=== PATIENT | male | born 1950 | race Caucasian/White ===

== ENCOUNTER 2021-04-07 12:12 | Emergency (ER) | payer MEDICARE, OTHER ==
[~2021-04-07] VITALS: Ht 172.7 cm; Wt 68.0 kg
--- NOTE | 2021-04-07 12:25 | PHYS DOC ---
Past History Past Medical History: Bipolar, Diabetes, Hypertension Past Surgical History: Appendectomy Smoking: Non-smoker Alcohol Use: None Drug Use: None General Adult EDM: Chief Complaint: HYPOTENSION HPI: HPI: Patient is a 70-year-old male brought into the ER today by [facility] for complaints of syncopal episode and fall. Patient reports around 3:00 this morning he was clipping his toenails when he bent over and then stood up and had a syncopal episode. He reports hitting his head on the ceramic tile of his bathroom. He is reporting posterior neck pain that he rates 7 out of 10. The pain does not radiate. No treatment for pain prior to arrival. Patient denies being on any blood thinners. He has a history of orthostatic hypotension. He states that when he checked his blood pressure at home it was 80s systolic, EMS reports that it was 110s systolic. Patient denies blurred vision, headache, dizziness, chest pain, shortness of breath, weakness. Patient states that he normally ambulates with the assistance of a cane at home. Review of Systems: Review of Systems: 14 body systems of the review of systems have been reviewed. See HPI for pertinent positive and negative responses, otherwise all other systems are negative, nonpertinent or noncontributory Current Medications: Current Meds: Current Medications Medications (Trade) Dose Ordered Sig/Christian Start Time Stop Time Status Last Admin Dose Admin Sodium Chloride 1,000 ml @ 1,000 mls/hr 1X ONCE 04/07/21 12:30 04/07/21 13:29 Allergies: Allergies: Allergies Coded Allergies Type Severity Reaction Last Updated Verified Amoxicillin Allergy Severe Nausea and Vomiting 05/06/14 No clavulanic acid Allergy Severe Nausea and Vomiting 05/06/14 No metronidazole Allergy Severe Hives 05/06/14 No radium-223 dichloride Allergy Severe Hives 05/06/14 No risperidone Allergy Severe Hives 05/06/14 No Physical Exam: PE: Constitutional: Well developed, well nourished, no acute distress, non-toxic appearance. [] HENT: Normocephalic, atraumatic Eyes: PERRLA, EOMI, conjunctiva normal, no discharge. [] Neck: Normal range of motion, supple, no stridor, positive cervical spinal tenderness with palpationc-collar in place. [] Cardiovascular:Heart rate tachycardia rhythm, no murmur [] Lungs & Thorax: Bilateral breath sounds clear to auscultation [] Abdomen: Bowel sounds normal, soft, no tenderness, no masses, no pulsatile masses. [] Skin: Warm, dry, no erythema, no rash. [] Back: No tenderness, normal range of motion [] Extremities: No tenderness, no cyanosis, no clubbing, ROM intact, no edema. [] Neurologic: Alert and oriented X 3, normal motor function, normal sensory function, no focal deficits noted, equal parking regulation enforcement officer strengths, no pronator drift [] Psychologic: Affect normal, judgement normal, mood normal. [] Current Patient Data: Labs: Laboratory Tests Test 04/07/21 12:51 White Blood Count 6.7 x10^3/uL Red Blood Count 4.50 x10^6/uL Hemoglobin 13.1 g/dL Hematocrit 39.0 % Mean Corpuscular Volume 87 fL Mean Corpuscular Hemoglobin 29 pg Mean Corpuscular Hemoglobin Concent 34 g/dL Red Cell Distribution Width 14.4 % Platelet Count 210 x10^3/uL Neutrophils (%) (Auto) 42 % Lymphocytes (%) (Auto) 42 % Monocytes (%) (Auto) 11 % Eosinophils (%) (Auto) 5 % Basophils (%) (Auto) 1 % Neutrophils # (Auto) 2.8 x10^3uL Lymphocytes # (Auto) 2.8 x10^3/uL Monocytes # (Auto) 0.7 x10^3/uL Eosinophils # (Auto) 0.3 x10^3/uL Basophils # (Auto) 0.1 x10^3/uL Sodium Level 138 mmol/L Potassium Level 4.0 mmol/L Chloride Level 99 mmol/L Carbon Dioxide Level 25 mmol/L Anion Gap 14 Blood Urea Nitrogen 22 mg/dL Creatinine 1.5 mg/dL Estimated GFR (Cockcroft-Gault) 46.5 BUN/Creatinine Ratio 15 Glucose Level 371 mg/dL Calcium Level 8.6 mg/dL Total Bilirubin 0.3 mg/dL Aspartate Amino Transf (AST/SGOT) 16 U/L Alanine Aminotransferase (ALT/SGPT) 22 U/L Alkaline Phosphatase 91 U/L Troponin I Quantitative < 0.017 ng/mL Total Protein 6.6 g/dL Albumin 3.3 g/dL Albumin/Globulin Ratio 1.0 Current Medications Medications (Trade) Dose Ordered Sig/Christian Route PRN Reason Start Time Stop Time Status Last Admin Dose Admin Sodium Chloride 1,000 ml @ 1,000 mls/hr 1X ONCE IV 04/07/21 12:30 04/07/21 13:29 DC 04/07/21 12:57 EKG: EKG: EKG performed by ER staff at 1220 shows sinus rhythm, no STEMI as read by Dr. Kemp at 1224. Radiology/Procedures: Radiology/Procedures: PROCEDURE: CT HEAD AND CERVICAL SPINE WO EXAM: Head an cervical spine CT without contrast. HISTORY: Fall. TECHNIQUE: Computed tomographic images of the head and cervical spine were obtained without contrast. *One or more of the following individualized dose reduction techniques were utilized for this examination: 1. Automated exposure control. 2. Adjustment of the mA and/or kV according to patient size. 3. Use of iterative reconstruction technique. COMPARISON: None. FINDINGS: Head: There is no acute or subacute hemorrhage. There is no mass effect or midline shift. There is no hydrocephalus. There is a cavum septum pellucidum et vergae. There is decreased aeration within the cerebral white matter, likely due to chronic small vessel disease. The orbits are unremarkable. There is minimal right maxillary sinus mucosal thickening. There is minimal left mastoid fluid. There is no suspicious calvarial lesion. Cervical spine: There is mild multilevel degenerative listhesis. There is degenerative endplate remodeling with disc space narrowing, osteophytosis and Schmorl's node formation at multiple levels. There is multilevel facet and uncovertebral arthropathy. There is no suspicious osseous lesion. There is no acute or subacute fracture. The combination of degenerative changes results in mild left foraminal stenosis at C2-C3, moderate right and mild left foraminal and moderate to severe central canal stenosis at C3-C4, mild bilateral foraminal and central canal stenosis at C4-C5, mild to moderate bilateral foraminal and mild central canal stenosis at C5-C6, moderate left foraminal stenosis at C6-C7, and moderate right foraminal stenosis at C7-T1. The lung apices are unremarkable. There is calcified atherosclerotic plaque involving the right greater than left carotid bifurcations. There is no neck lymphadenopathy. The airways midline and widely patent. IMPRESSION: 1. No acute intracranial finding or evidence of acute cervical spine trauma. 2. Bilateral cerebral white matter changes, likely due to chronic small vessel disease. 3. Degenerative change throughout the cervical spine, resulting in foraminal and central canal stenosis at the aforementioned levels. Central canal stenosis most significant at C3-C4. Electronically signed by: Karla Modi MD (04/07/2021 1:01 PM) [id number] DICTATED AND SIGNED BY: KARLA MODI MD DATE: 04/07/21 1258 CC: EMERGENCY,DEPARTMENT; NOY ONTIVEROS APRN; LEWIS MILLER P ~MTH0 0 PROCEDURE: PORTABLE CHEST 1V EXAM: Chest, single view. HISTORY: Syncope. COMPARISON: None. FINDINGS: A frontal view of the chest is obtained. There is no infiltrate, pleural effusion or pneumothorax. The heart is normal in size. There are median sternotomy changes. There is a coronary artery stent. IMPRESSION: No acute pulmonary finding. Electronically signed by: Karla Modi MD (04/07/2021 12:49 PM) [id number] DICTATED AND SIGNED BY: KARLA MODI MD DATE: 04/07/21 1249 CC: EMERGENCY,DEPARTMENT; NOY ONTIVEROS APRN; LEWIS MILLER P ~MTH0 0 Heart Score: C/O Chest Pain: No Risk Factors: Risk Factors: DM, Current or recent (<one month) smoker, HTN, HLP, family history of CAD, obesity. Risk Scores: Score 0 - 3: 2.5% MACE over next 6 weeks - Discharge Home Score 4 - 6: 20.3% MACE over next 6 weeks - Admit for Clinical Observation Score 7 - 10: 72.7% MACE over next 6 weeks - Early Invasive Strategies Course & Med Decision Making: Course & Med Decision Making Pertinent Labs and Imaging studies reviewed. (See chart for details) Patient is a 62-year-old male being seen in the ER today for syncopal episode and fell. Patient does have a positive history of orthostatic hypotension. Orthostatic blood pressures were obtained in the ER and they were positive for orthostatic hypotension, see nurses documentation. Lab work was obtained in the ER. This was unremarkable except for an elevated creatinine. Patient did receive 1 L of normal saline while in the ER.. Patient had a chest x-ray and a CT scan of his head and neck, these were negative for any acute findings, c- collar cleared. Patient road tested in the ER, he was ambulatory without any difficulty or dizziness. I discussed with patient all findings and diagnostic testing as well as the need to follow-up with PCP for further evaluation and treatment or return to the ER if any new or worsening symptoms. Strict return precautions were also discussed at length. Patient voiced understanding and agreement with the plan. Patient is hemodynamically stable at the time of disposition. Dragon Disclaimer: Dragon Disclaimer: This electronic medical record was generated, in whole or in part, using a voice recognition dictation system. Departure Departure: Impression: Primary Impression: Orthostatic hypotension Disposition: HOME / SELF CARE / HOMELESS Condition: GOOD Referrals: LEWIS MILLER (PCP) Patient Instructions: Orthostatic Hypotension Additional Instructions: You were seen in the ER today for a syncopal episode. This was most likely ca used by a decrease in your blood pressure. He did have a history of orthostatic hypotension. Your CT scan of your head and neck were negative for any acute findings. Your labs were unremarkable, you may have been slightly dehydrated and this was treated with a liter of normal saline. You are ambulatory in the ER without any symptoms. These follow-up with your primary care provider regarding your ER visit tomorrow. If you develop dizziness, falls, passout, chest pain, shortness of breath, palpitations, vision changes or problems return to the ER immediately. EMERGENCY DEPARTMENT GENERAL DISCHARGE INSTRUCTIONS Thank you for coming to [facility] (ED) today and trusting us with you care. We trust that you had a positivie experience in our Emergency Department. If you wish to speak to the department management, you may call the director at [phone]. YOUR FOLLOW UP INSTRUCTIONS ARE FOLLOWS: 1. Do you have a private Doctor? If you do not have a private doctor, please ask for a resource list of physicians or clinics that may be able to assist you with follow up care. 2. The Emergency Physician has interpreted your x-rays. The X-Ray specialist will also review them. If there is a change in the findings, you will be notified in 48 hours when at all possible. 3. A lab test or culture has been done, your results will be reviewed and you will be notified if you need a change in treatment. ADDITIONAL INSTRUCTIONS AND INFORMATION: 1. Your care today has been supervised by a physician who is specially trained in emergency care. Many problems require more than one evaluation for a complete diagnosis and treatment. We recommend that you schedule your follow up appointment as recommended to ensure complete treatment of you illness or injury. If you are unable to obtain follow up care and continue to have a problem, or if your condition worsens, we recommend that you return to the ED. 2. We are not able to safely determine your condition over the phone nor are we able to give sound medical advice over the phone. For these safety reasons, if you call for medical advice we will ask you to come to the ED for further evaluation. 3. If you have any questions regarding these discharge instructions please call the ED at [phone]. SAFETY INFORMATION: In the interest of safety, wellness, and injury prevention; we encourage you to wear your sealbelt, if you smoke; quite smoking, and we encourage family to use a protective helmet for bicycling and other sporting events that present an increased risk for head injury. IF YOUR SYMPTOMS WORSEN OR NEW SYMPTOMS DEVELOP, OR YOU HAVE CONCERNS ABOUT YOUR CONDITION; OR IF YOUR CONDITION WORSENS WHILE YOU ARE WAITING FOR YOUR FOLLOW UP APPOINTMENT; EITHER CONTACT YOUR PRIMARY CARE DOCTOR, THE PHYSICIAN WHOSE NAME AND NUMBER YOU WERE GIVEN, OR RETURN TO THE ED IMMEDIATELY. NOY ONTIVEROS [employer] Apr 07, 2021 12:25
[2021-04-07] MEDS ORDERED: IV NORMAL SALINE 1,000ML 1,000 ML IV ONE (12:30)
--- NOTE | 2021-04-07 12:47 | EKG ---
[address] [address] Test Date: 2021-04-07 Test Time: 12:20:08 Pat Name: SIMONE FLANAGAN Department: Room: Gender: M Instructional Material Director: HUGH : 1950 Requested By: NOY ONTIVEROS Order Number: [id number] Reading MD: Measurements Intervals [place] Rate: 113 P: [place]: QRS: 74 QRSD: 86 T: 42 QT: 326 QTc: 453 Interpretive Statements ACCELERATED JUNCTIONAL RHYTHM ABNORMAL ECG RI6.02 No previous ECG available for comparison
--- NOTE | 2021-04-07 12:52 | RAD ---
EXAM: Chest, single view. HISTORY: Syncope. COMPARISON: None. FINDINGS: A frontal view of the chest is obtained. There is no infiltrate, pleural effusion or pneumo thorax. The heart is normal in size. There are median sternotomy changes. There is a coronary artery stent. IMPRESSION: No acute pulmonary finding. Electronically signed by: Karla Palomares MD (04/07/2021 12:49 PM) [id number]
--- NOTE | 2021-04-07 13:03 | RAD ---
EXAM: Head an cervical spine CT without contrast. HISTORY: Fall. TECHNIQUE: Computed tomographic images of the head and cervical spine were obtained without contrast. *One or more of the following individualized dose reduction techniques were utilized for this examina tion: 1. Automated exposure control. 2. Adjustment of the mA and/or kV according to patient size. 3. Use of iterative reconstruction technique. COMPARISON: None. FINDINGS: Head: There is no acute or subacute hemorrhage. There is no mass effect or midline shift. There is no hydrocephalus. There is a cavum septum pellucidum et vergae. There is decreased aeration within the cerebral white matter, likely due to chronic small vessel disease. The orbits are unremarkable. There is minimal right maxillary sinus mucosal thickening. There is minimal left mastoid fluid. There is n o suspicious calvarial lesion. Cervical spine: There is mild multilevel degenerative listhesis. There is degenerative endplate remod eling with disc space narrowing, osteophytosis and Schmorl's node formation at multiple levels. There is multilevel facet and uncovertebral arthropathy. There is no suspicious osseous lesion. There is n o acute or subacute fracture. The combination of degenerative changes results in mild left foraminal stenosis at C2-C3, moderate ri ght and mild left foraminal and moderate to severe central canal stenosis at C3-C4, mild bilateral fo raminal and central canal stenosis at C4-C5, mild to moderate bilateral foraminal and mild central ca nal stenosis at C5-C6, moderate left foraminal stenosis at C6-C7, and moderate right foraminal stenos is at C7-T1. The lung apices are unremarkable. There is calcified atherosclerotic plaque involving the right great er than left carotid bifurcations. There is no neck lymphadenopathy. The airways midline and widely p atent. IMPRESSION: 1. No acute intracranial finding or evidence of acute cervical spine trauma. 2. Bilateral cerebral white matter changes, likely due to chronic small vessel disease. 3. Degenerative change throughout the cervical spine, resulting in foraminal and central canal stenos is at the aforementioned levels. Central canal stenosis most significant at C3-C4. Electronically signed by: Karla Palomares MD (04/07/2021 1:01 PM) [id number]
[2021-04-07 13:22] LABS: BASO # 0.1 x10^3/uL (0.0-0.2); BASO % 1 % (0-3); EOS # 0.3 x10^3/uL (0.0-0.7); EOS % 5 % (0-3); HEMOGLOBIN 13.1 g/dL (13.0-17.5); LYMPH # 2.8 x10^3/uL (1.0-4.8); LYMPH % 42 % (24-48); MEAN CORPUSCULAR HEMOGLOBIN 29 pg (25-35); MEAN CORPUSCULAR HGB CONC 34 g/dL (31-37); MEAN CORPUSCULAR VOLUME 87 fL (79-100); MONO # 0.7 x10^3/uL (0.0-1.1); MONO % 11 % (0-9); NEUT # 2.8 x10^3uL (1.8-7.7); NEUT % 42 % (31-73); PLATELET COUNT 210 x10^3/uL (140-400); RED CELL DISTRIBUTION WIDTH 14.4 % (11.5-14.5); WHITE BLOOD COUNT 6.7 x10^3/uL (4.0-11.0)
[2021-04-07 13:25] LABS: CALCIUM 8.6 mg/dL (8.5-10.1); CREATININE 1.5 mg/dL (0.7-1.3); GFR 46.5
[2021-04-07 13:31] LABS: ALBUMIN 3.3 g/dL (3.4-5.0); TOTAL BILIRUBIN 0.3 mg/dL (0.2-1.0); TOTAL PROTEIN 6.6 g/dL (6.4-8.2)
[2021-04-07 13:56] VITALS: BP 142/63
== END 2021-04-07 13:53 | disposition home or self-care (01) ==
LOC: ER 12:12
DX: I95.1 Orthostatic hypotension (principal); M54.2 Cervicalgia; F31.9 Bipolar disorder, unspecified; E11.9 Type 2 diabetes mellitus without complications; I10 Essential (primary) hypertension; Z88.1 Allergy status to other antibiotic agents; Z88.8 Allergy status to other drugs, medicaments and biological substances; W18.39XA Other fall on same level, initial encounter; Y93.89 Activity, other specified; Y92.89 Other specified places as the place of occurrence of the external cause; Y99.8 Other external cause status
CPT/HCPCS: 36415; 70450; 71045; 72125; 80053; 84484; 85025; 93005; 96360; 99285; J7030